=== PATIENT | female | born 1940 | race Caucasian/White ===

== ENCOUNTER → 2019-05-06 | Outpatient (CLI) | payer OTHER, BC ==
[~2019-05-06] MED LIST: ALLOPURINOL 10100 M1 PO; BACTRIM DS TAB1 EACH PO; NEXIUM40 MG PO; PRAVACHOL40 MG PO; PROBENECID-COL1 EACH PO; TOPROL XL25 MG PO; VASOTEC10 MG PO
[2019-05-06 14:30] VITALS: BP 112/41
[2019-05-06 16:45] VITALS: BP 124/31
--- NOTE | 2019-05-06 18:29 | NUR ---
IN FOR VENOFER INFUSION FOR IRON DEFICIENCY ANEMIA. ADMISSION HISTORY AND ASSESSMENT COMPLETED. IV PLACED IN LEFT AC. INFUSED VENOFER OVER 1 HOUR AND TOLERATED WELL WITHOUT INCIDENT. POST VITAL SIGNS STABLE. TO RETURN ON MONDAY FOR NEXT INFUSION. DISMISSED IN STABLE CONDITION.
== END ==
LOC: OPONC 14:12
DX: D50.8 Other iron deficiency anemias (principal)
CPT/HCPCS: 95000

== ENCOUNTER → 2019-05-08 | Outpatient (CLI) | payer OTHER, BC ==
[2019-05-08 13:50] VITALS: BP 118/47
[2019-05-08 16:00] VITALS: BP 100/38
--- NOTE | 2019-05-08 16:10 | NUR ---
HERE FOR 2ND OF 3 VENOFER INFUSIONS. REPORTS TOLERATING FIRST WITHOUT NOTED ADVERSE REACTION. TOLERATED TODAY'S WITHOUT INCIDENT, NO S/S REACTION. CAME FROM LYMPHEDEMA APPT AT [facility] WHERE THEY WRAPPED HER LLE. APPARENTLY PT HAS CELLULITS. STATES LEG IS PAINFUL. STATES SHE IS ON ORAL ANTIBIOTICS FOR THIS. PT DISMISSED POST INFUSION IN STABLE CONDITION. SCHEDULED TO RETURN AGAIN ON MONDAY.
== END ==
LOC: OPONC 09:33
DX: D50.8 Other iron deficiency anemias (principal)
CPT/HCPCS: 95000; 95001

== ENCOUNTER → 2019-05-10 | Outpatient (CLI) | payer OTHER, BC ==
[2019-05-10 13:10] VITALS: BP 144/56
[2019-05-10 14:35] VITALS: BP 123/52
--- NOTE | 2019-05-10 16:02 | NUR ---
IN FOR 3RD AND LAST VENOFER INFUSION. STATED TOLERATING INFUSIONS WELL WITH NO SIDE EFFECTS NOTED. INFUSED VENOFER OVER 1 L HOUR AND TOLERATED WITHOUT INCIDNET. POST VITAL SIGNS GOOD. REMOVED IV AND DISMISSED IN STABLE CONDITION.
== END ==
LOC: OPONC
DX: D50.8 Other iron deficiency anemias (principal)
CPT/HCPCS: 95000